=== PATIENT | female | born 1960 | race Caucasian/White ===

== ENCOUNTER 2022-04-05 13:15 | Emergency (ER) | payer OTHER ==
[~2022-04-05] VITALS: Ht 152.4 cm; Wt 72.6 kg
[2022-04-05] MEDS ORDERED: ACETAMINOPHEN 325 MG TAB PO ONE (14:00)
[2022-04-05] MEDS ORDERED: BUPIVACAINE-MPF 0.25% 30 ML VIAL INJ ONE (14:05)
--- NOTE | 2022-04-05 14:30 | NUR ---
AMB TO BED 1
--- NOTE | 2022-04-05 15:18 | NUR ---
SUGAR TONG APPLIED BY , X 2 AIDA WRAP APPLIED. + CMS AFTER APPLICATION
[2022-04-05] MEDS ORDERED: IBUP-2213 PO ×2 (15:27→15:42)
--- NOTE | 2022-04-05 15:28 | NUR ---
XRAY AT BEDSIDE FOR POST SPLINT XRAY
[2022-04-05 15:38] VITALS: BP 145/83
--- NOTE | 2022-04-05 15:46 | NUR ---
PT VERBALIZED UNDERSTANDING OF AFTERCARE AND FOLLOW UP INSTRUCTIONS. RX GIVEN. RESP E/U, IN NO ACUTE DISTRESS. PT AMBULATORY OUT OF ED WITH STEADY GAIT
== END 2022-04-05 15:44 | disposition home or self-care (01) ==
LOC: MED 13:15
DX: S52.601A Unspecified fracture of lower end of right ulna, initial encounter for closed fracture (principal); S52.501A Unspecified fracture of the lower end of right radius, initial encounter for closed fracture; W18.30XA Fall on same level, unspecified, initial encounter; Y93.89 Activity, other specified; Y92.89 Other specified places as the place of occurrence of the external cause; Y99.8 Other external cause status
CPT/HCPCS: 25605; 73110; 99284; J3490